=== PATIENT | female | born 1975 ===

== ENCOUNTER 2022-12-18 14:07 | Emergency (ER) | payer MEDICAID, OTHER ==
[~2022-12-18] VITALS: Ht 167.6 cm; Wt 81.8 kg
[2022-12-18] MEDS ORDERED: LORazepam 2MG/ML-1ML VIAL IV ONE (14:30)
[2022-12-18 14:49] LABS: Basophils # (auto) 0 10 ^3/uL (0-0.2); Basophils % (auto) 0.7 % (0.0-2.0); Eosinophils # (auto) 0.1 10 ^3/uL (0-0.8); Eosinophils % (auto) 1.6 % (0.0-7.0); Hemoglobin 13.3 g/dL (12.2-16.2); Lymphocytes # (auto) 1.6 10 ^3/uL (0.4-5.4); Lymphocytes % (auto) 25.7 % (10.0-50.0); Mean Corpuscular Hemoglobin 26.9 pg (28.0-32.0); Mean Corpuscular Hgb Conc. 32.4 g/dL (32.0-36.0); Monocytes # (auto) 0.3 10 ^3/uL (0-1.3); Neutrophils # (auto) 4.2 10 ^3/uL (1.6-8.6); Nucleated Red Blood Cells % 0.2 %; Red Blood Cells 4.94 10^6/uL (4.0-5.20); Red Cell Distribution Width 16.2 % (11.8-14.3); White Blood Cell 6.3 10^3/uL (4.4-10.8)
[2022-12-18 15:47] LABS: Albumin 2.8 g/dL (3.4-5.0); Calcium 7.9 mg/dL (8.5-10.1); Magnesium 2.2 mg/dL (1.6-2.6)
[2022-12-18 15:50] LABS: Bilirubin, Total 0.2 mg/dL (0.2-1.0); Total Protein 6.4 g/dL (6.4-8.2)
[2022-12-18 18:12] VITALS: BP 100/57
== END 2022-12-18 18:14 | disposition home or self-care (01) ==
LOC: ER 14:07 → EDBD 14:07 → ER 18:13
DX: R56.9 Unspecified convulsions (principal); Z88.6 Allergy status to analgesic agent; Z79.899 Other long term (current) drug therapy
CPT/HCPCS: 36415; 70450; 80053; 80164; 83735; 85025; 96374; 99285; J2060